=== PATIENT | female | born 1955 | race Caucasian/White ===

== ENCOUNTER 2021-12-06 19:50 | Inpatient (IN) ==
[2021-12-06 20:51] LABS: Basophils % 0.2 %; Eosinophils % 0.1 %; Hematocrit 45.2 % (35.3-44.9); Hemoglobin 15.1 g/dL (11.5-15.4); Immature Granulocytes % 0.3 % (0-4); Lymphocytes # 1.6 K/mcL (0.6-4.6); Lymphocytes % 11.1 %; Mean Corpuscular HGB Conc 33.4 g/dL (31.6-35.5); Mean Corpuscular Volume 89.9 fL (83.0-100.0); Mean Platelet Volume 10.7 fL (9.4-12.4); Monocytes # 0.9 K/mcL (0.0-1.3); Monocytes % 5.9 %; Platelet Count 284 K/mcL (140-400); Red Blood Count 5.03 M/mcL (3.82-4.97); Red Cell Distribution Width 12.9 % (11.5-14.5); Segmented Neutrophils % 82.4 %; White Blood Count 14.6 K/mcL (4.3-11.1)
[2021-12-06] MEDS ORDERED: Morphine Sulfate 2 MG/ML SYRINGE IVP STA (20:52)
[2021-12-06] MEDS ORDERED: Naloxone 0.4 MG/ML INJ IVP PRN (21:10)
[2021-12-06] MEDS ORDERED: Melatonin 3 MG TABLET PO PRN (21:10)
[2021-12-06] MEDS ORDERED: Ondansetron ODT 4 MG TAB.RAPDIS SL PRN (21:10)
[2021-12-06 21:17] LABS: INR 1.2; Prothrombin Time 13.7 Seconds (9.4-12.1)
[2021-12-06 21:19] LABS: Activated Partial Thrombo Time 32.6 Seconds (26.0-36.0)
[2021-12-06 21:45] LABS: Bilirubin,Urine Negative (Negative); Blood,Urine Negative (Negative); Clarity,Urine Clear (Clear); Color,Urine Light-Yellow (Yellow); Glucose,Urine (UA) Normal (Normal); Ketones,Urine 20 mg/dL (Negative); Leukocyte Esterase,Urine Negative (Negative); Nitrite,Urine Negative (Negative); Protein,Urine Trace mg/dL (Neg-Trace); Specific Gravity,Urine 1.017 (1.010-1.025); Urobilinogen,Urine Normal (Normal)
[2021-12-06 21:58] LABS: Alanine Aminotransferase 14 Units/L (7-52); Albumin 4.6 g/dL (3.5-5.7); Alkaline Phosphatase 67 Units/L (34-104); Aspartate Amino Transferase 25 Units/L (13-39); BUN/Creatinine Ratio 16 (6-26); Bilirubin,Total 0.7 mg/dL (0.3-1.0); Blood Urea Nitrogen 10 mg/dL (8-23); Calcium 9.6 mg/dL (8.6-10.3); Carbon Dioxide 25 mEq/L (23-29); Chloride 90 mEq/L (98-107); Glucose 127 mg/dL (70-105); Osmolality,Calculated 261 (280-300); Potassium 3.9 mEq/L (3.5-5.1); Sodium 125 mEq/L (136-145); eGFR For African Americans > 60 (> 60); eGFR For Non-African Americans > 60 (> 60)
[2021-12-06 22:12] LABS: Albumin/Globulin Ratio 1.6 (1.1-2.2); Globulin 2.8 g/dL (2.4-3.5); Total Protein 7.4 g/dL (6.4-8.9)
[2021-12-06] MEDS ORDERED: D5% in Water 1,000 ML IVC PRN (22:54)
[2021-12-06] MEDS ORDERED: Dextrose Gel 15 GM/37.5 ML TUBE PO PRN ×2 (22:54)
[2021-12-06] MEDS ORDERED: *HR* Dextrose 50 % in Water (Syg) 50 ML SYRINGE IVP PRN (22:54)
[2021-12-06] MEDS ORDERED: Ipratropium/Albuterol Neb 3 ML IH PRN (22:54)
[2021-12-06] MEDS: 0.9 % Sodium Chloride 1,000 ML IVC SCH (23:13)
[2021-12-06] MEDS: Nicotine 21 MG PATCH.TD24 TD SCH (23:14)
[2021-12-07 05:28] LABS: Hematocrit 40.3 % (35.3-44.9); Mean Corpuscular HGB Conc 33.5 g/dL (31.6-35.5); Mean Corpuscular Hemoglobin 30.2 pg (28.0-33.3); Mean Corpuscular Volume 90.2 fL (83.0-100.0); Mean Platelet Volume 10.7 fL (9.4-12.4); Platelet Count 216 K/mcL (140-400); Red Blood Count 4.47 M/mcL (3.82-4.97); Red Cell Distribution Width 12.7 % (11.5-14.5); White Blood Count 7.9 K/mcL (4.3-11.1)
[2021-12-07 05:31] LABS: Hemoglobin 13.5 g/dL (11.5-15.4)
[2021-12-07 05:46] LABS: BUN/Creatinine Ratio 17 (6-26); Blood Urea Nitrogen 8 mg/dL (8-23); Calcium 9.1 mg/dL (8.6-10.3); Carbon Dioxide 25 mEq/L (23-29); Chloride 97 mEq/L (98-107); Glucose 106 mg/dL (70-105); Magnesium 1.6 mg/dL (1.6-2.6); Osmolality,Calculated 265 (280-300); Phosphorous 2.5 mg/dL (2.7-4.5); Potassium 3.5 mEq/L (3.5-5.1); Sodium 128 mEq/L (136-145); eGFR For African Americans > 60 (> 60); eGFR For Non-African Americans > 60 (> 60)
[2021-12-07] MEDS: 0.9 % Sodium Chloride 1,000 ML IVC SCH (06:59)
[2021-12-07] MEDS: Nicotine 21 MG PATCH.TD24 TD SCH (08:28)
[2021-12-07] MEDS ORDERED: Albuterol 2.5 MG/3 ML NEBULIZER IH PRN (12:27)
[2021-12-07] MEDS: Tiotropium 10 INH DOSE IH SCH (15:33)
[2021-12-07] MEDS: *HR* Heparin 5,000 UNIT/ML VIAL SQ SCH (18:32)
[2021-12-08] MEDS: *HR* Heparin 5,000 UNIT/ML VIAL SQ SCH ×2 (05:16→16:59)
[2021-12-08 05:20] LABS: Hematocrit 38.1 % (35.3-44.9); Hemoglobin 12.6 g/dL (11.5-15.4); Mean Corpuscular HGB Conc 33.1 g/dL (31.6-35.5); Mean Corpuscular Hemoglobin 30.4 pg (28.0-33.3); Mean Platelet Volume 10.4 fL (9.4-12.4); Platelet Count 202 K/mcL (140-400); Red Blood Count 4.14 M/mcL (3.82-4.97); White Blood Count 7.4 K/mcL (4.3-11.1)
[2021-12-08 05:39] LABS: BUN/Creatinine Ratio 17 (6-26); Blood Urea Nitrogen 10 mg/dL (8-23); Carbon Dioxide 29 mEq/L (23-29); Chloride 98 mEq/L (98-107); Glucose 97 mg/dL (70-105); Osmolality,Calculated 271 (280-300); Potassium 3.5 mEq/L (3.5-5.1); Sodium 131 mEq/L (136-145); eGFR For African Americans > 60 (> 60); eGFR For Non-African Americans > 60 (> 60)
[2021-12-08] MEDS: Tiotropium 10 INH DOSE IH SCH (07:19)
[2021-12-08] MEDS ORDERED: Vancomycin 1,000 MG VIAL ONE (14:24)
[2021-12-08] MEDS ORDERED: Lidocaine -MPF 2% 2 ML VIAL ONE (14:42)
[2021-12-08] MEDS ORDERED: *HR* Propofol 200 MG/20 ML VIAL IVP ONE (14:44)
[2021-12-08] MEDS ORDERED: Ondansetron 4 MG/2 ML VIAL ONE (14:44)
[2021-12-08] MEDS ORDERED: TOTAL JOINT MIXTURE (100ML) INTRAART ONE (14:45)
[2021-12-08] MEDS ORDERED: CeFAZolin Syr 2,000MG/20 ML 2,000 MG/20 ML SYRINGE IVPB ONE (14:50)
[2021-12-08] MEDS ORDERED: Ringers Solution, Lactated 1,000 ML IVC SCH ×2 (15:00→18:00)
[2021-12-08] MEDS ORDERED: *HR* FentaNYL (PF) 100 MCG/2 ML VIAL ONE (15:07)
[2021-12-08] MEDS ORDERED: Ondansetron 4 MG/2 ML VIAL IVP PRN ×2 (15:13→17:58)
[2021-12-08] MEDS ORDERED: *HR* FentaNYL (PF) 100 MCG/2 ML VIAL IVP PRN (15:13)
[2021-12-08] MEDS ORDERED: *HR* OxyCODONE/APAP 5/325 TABLET PO PRN (15:13)
[2021-12-08] MEDS ORDERED: *HR* HYDROmorphone PF 0.5 MG/0.5 ML SYRINGE IVP PRN (15:13)
[2021-12-08] MEDS ORDERED: *HR* Labetalol 20 MG/4 ML SYRINGE IVP PRN (15:13)
[2021-12-08] MEDS ORDERED: EPHEDrine 50 MG/ML VIAL ONE (16:17)
[2021-12-08] MEDS ORDERED: Tranexamic Acid 1,000 MG/10 ML VIAL ONE (16:32)
[2021-12-08] MEDS ORDERED: *HR* HYDROMORPHONE 2 MG/ML VIAL ONE (16:52)
[2021-12-08] MEDS ORDERED: Sugammadex Sodium 200 MG/2 ML VIAL IV ONE (17:22)
[2021-12-08] MEDS ORDERED: Sennosides 8.6 MG TABLET PO PRN (17:58)
[2021-12-08] MEDS ORDERED: *HR* Promethazine 25 MG/ML VIAL IM PRN (17:58)
[2021-12-08] MEDS ORDERED: MOM Conc 10 ML UD.LIQ PO PRN (17:58)
[2021-12-08] MEDS ORDERED: Naloxone 0.4 MG/ML INJ IVP PRN (17:58)
[2021-12-08] MEDS: Aspirin Enteric Coated 81 MG Tablet PO SCH (20:44)
[2021-12-08] MEDS: CeFAZolin 2 GM/120 ML BAG IVPB SCH (23:12)
[2021-12-09 02:06] LABS: Basophils % 0.2 %; Hematocrit 33.6 % (35.3-44.9); Immature Granulocytes % 0.2 % (0-4); Lymphocytes # 0.7 K/mcL (0.6-4.6); Lymphocytes % 8.1 %; Mean Corpuscular HGB Conc 32.7 g/dL (31.6-35.5); Mean Corpuscular Hemoglobin 29.6 pg (28.0-33.3); Mean Corpuscular Volume 90.6 fL (83.0-100.0); Mean Platelet Volume 10.6 fL (9.4-12.4); Monocytes # 0.7 K/mcL (0.0-1.3); Neutrophils # 7.3 K/mcL (1.6-8.9); Platelet Count 205 K/mcL (140-400); Red Blood Count 3.71 M/mcL (3.82-4.97); Red Cell Distribution Width 12.9 % (11.5-14.5); Segmented Neutrophils % 83.5 %; White Blood Count 8.8 K/mcL (4.3-11.1)
[2021-12-09 02:07] LABS: Hematocrit 33.5 % (35.3-44.9); Mean Corpuscular HGB Conc 32.8 g/dL (31.6-35.5); Mean Corpuscular Hemoglobin 29.8 pg (28.0-33.3); Mean Corpuscular Volume 90.8 fL (83.0-100.0); Mean Platelet Volume 10.7 fL (9.4-12.4); Platelet Count 202 K/mcL (140-400); Red Blood Count 3.69 M/mcL (3.82-4.97); Red Cell Distribution Width 12.8 % (11.5-14.5)
[2021-12-09 02:26] LABS: BUN/Creatinine Ratio 23 (6-26); Blood Urea Nitrogen 14 mg/dL (8-23); Calcium 8.5 mg/dL (8.6-10.3); Carbon Dioxide 25 mEq/L (23-29); Chloride 100 mEq/L (98-107); Glucose 134 mg/dL (70-105); Osmolality,Calculated 274 (280-300); Potassium 3.9 mEq/L (3.5-5.1); Sodium 131 mEq/L (136-145); eGFR For African Americans > 60 (> 60); eGFR For Non-African Americans > 60 (> 60)
[2021-12-09] MEDS: *HR* Heparin 5,000 UNIT/ML VIAL SQ SCH ×2 (05:17→18:24)
[2021-12-09] MEDS: Tiotropium 10 INH DOSE IH SCH (07:37)
[2021-12-09] MEDS ORDERED: Acetaminophen 325 MG TABLET PO PRN (08:22)
[2021-12-09] MEDS: Nicotine 21 MG PATCH.TD24 TD SCH ×2 (08:24→18:24)
[2021-12-09] MEDS: Multivit/Ca/Min/Fe/FA 1 TAB TABLET PO SCH (08:38)
[2021-12-09] MEDS: Ascorbic Acid 500 MG TABLET PO SCH ×2 (08:39→18:24)
[2021-12-09] MEDS: Aspirin Enteric Coated 81 MG Tablet PO SCH ×2 (08:39→22:14)
[2021-12-09] MEDS: CeFAZolin 2 GM/120 ML BAG IVPB SCH (08:45)
[2021-12-09] MEDS: HYDROcodone BIT/Homatropine 5 MG TABLET PO PRN (12:31)
[2021-12-09] MEDS: *HR* OxyCODONE Immed Rel 5 MG TABLET PO PRN (22:26)
[2021-12-10] MEDS: HYDROcodone BIT/Homatropine 5 MG TABLET PO PRN ×2 (02:51→11:10)
[2021-12-10] MEDS: *HR* Heparin 5,000 UNIT/ML VIAL SQ SCH (05:44)
[2021-12-10] MEDS: *HR* OxyCODONE Immed Rel 5 MG TABLET PO PRN (05:44)
[2021-12-10 06:00] LABS: Basophils % 0.3 %; Eosinophils % 0.4 %; Hematocrit 30.8 % (35.3-44.9); Hemoglobin 10.1 g/dL (11.5-15.4); Immature Granulocytes % 0.4 % (0-4); Lymphocytes # 1.6 K/mcL (0.6-4.6); Lymphocytes % 16.1 %; Mean Corpuscular HGB Conc 32.8 g/dL (31.6-35.5); Mean Corpuscular Hemoglobin 30.1 pg (28.0-33.3); Mean Corpuscular Volume 91.7 fL (83.0-100.0); Mean Platelet Volume 10.8 fL (9.4-12.4); Monocytes % 9.8 %; Neutrophils # 7.4 K/mcL (1.6-8.9); Platelet Count 219 K/mcL (140-400); Red Blood Count 3.36 M/mcL (3.82-4.97); Red Cell Distribution Width 12.9 % (11.5-14.5); White Blood Count 10.2 K/mcL (4.3-11.1)
[2021-12-10 06:59] LABS: BUN/Creatinine Ratio 19 (6-26); Blood Urea Nitrogen 10 mg/dL (8-23); Calcium 8.5 mg/dL (8.6-10.3); Carbon Dioxide 29 mEq/L (23-29); Chloride 96 mEq/L (98-107); Glucose 111 mg/dL (70-105); Osmolality,Calculated 270 (280-300); Potassium 3.7 mEq/L (3.5-5.1); Sodium 130 mEq/L (136-145); eGFR For African Americans > 60 (> 60); eGFR For Non-African Americans > 60 (> 60)
[2021-12-10] MEDS: Tiotropium 10 INH DOSE IH SCH (07:59)
[2021-12-10] MEDS: Multivit/Ca/Min/Fe/FA 1 TAB TABLET PO SCH (09:55)
[2021-12-10] MEDS: Nicotine 21 MG PATCH.TD24 TD SCH (09:55)
[2021-12-10] MEDS: Aspirin Enteric Coated 81 MG Tablet PO SCH (09:55)
[2021-12-10] MEDS: Ascorbic Acid 500 MG TABLET PO SCH (09:56)
[2021-12-10 11:14] VITALS: BP 158/76; PULSE 86; TEMP 97.8; O2SAT 95
== END 2021-12-10 14:10 | disposition home health service (06) | DRG 522 ==
LOC: 4WAOSI 19:50 → EMEROOARM 19:50 → SUATTDRO 21:32 → 4WAOSI 22:25
PROVIDERS: ADMIT Internal Medicine; ATTEND Internal Medicine